=== PATIENT | male | born 1950 | race Caucasian/White ===

== ENCOUNTER 2019-08-25 09:19 | Outpatient (CLI) | payer OTHER ==
[2019-08-25 10:33] LABS: ALANINE AMINOTRANSFERASE 39 U/L (12-78); ALBUMIN 3.6 g/dL (3.4-4.8); ASPARTATE AMINOTRANSFERASE 22 U/L (10-37); CHLORIDE 92 mmol/L (98-107); CHOLESTEROL 133 mg/dL (<200); CREATININE 1.14 mg/dL (0.55-1.30); GLUCOSE 111 mg/dL (70-99); HDL CHOLESTEROL 34 mg/dL (>45); LDL CHOLESTEROL 65 mg/dL (<100); SODIUM SERUM 127 mmol/L (136-145); TRIGLYCERIDES 243 mg/dL (30-150); UREA NITROGEN, BLOOD 26 mg/dL (8-21); URIC ACID 8.9 mg/dL (2.4-7.0)
[2019-08-25 10:39] LABS: ANION GAP < 3 (5-15); GFR AFRICAN AMERICAN 82 mL/min (>90); POTASSIUM 2.9 mmol/L (3.5-5.1)
== END 2019-08-25 21:01 | disposition home or self-care (01) ==
LOC: SLB 09:19
DX: Z12.5 Encounter for screening for malignant neoplasm of prostate (principal); I10 Essential (primary) hypertension; E78.5 Hyperlipidemia, unspecified; J44.9 Chronic obstructive pulmonary disease, unspecified; I42.0 Dilated cardiomyopathy; I25.10 Atherosclerotic heart disease of native coronary artery without angina pectoris
CPT/HCPCS: 36415; 80053; 80061; 83880; 84550; G0103; 84153